=== PATIENT | male | born 1990 | race Caucasian/White ===

== ENCOUNTER 2019-03-27 00:33 | Emergency (ER) | payer SELFPAY ==
[~2019-03-27] VITALS: Ht 182.9 cm; Wt 88.5 kg
[2019-03-27 01:06] VITALS: Ht 182.9 cm; Wt 88.5 kg
[2019-03-27 05:23] VITALS: BP 101/52
== END 2019-03-27 05:23 | disposition home or self-care (01) ==
LOC: ED 00:33
DX: S40.011A Contusion of right shoulder, initial encounter (principal); S29.9XXA Unspecified injury of thorax, initial encounter; Z90.49 Acquired absence of other specified parts of digestive tract; W18.00XA Striking against unspecified object with subsequent fall, initial encounter; Y93.89 Activity, other specified; Y92.89 Other specified places as the place of occurrence of the external cause; Y99.8 Other external cause status